=== PATIENT | male | born 1945 | race Caucasian/White ===

== ENCOUNTER 2023-01-17 18:39 | Emergency (ER) | payer MEDICARE, OTHER ==
[~2023-01-17] VITALS: Ht 190.5 cm; Wt 99.8 kg
[2023-01-17 22:30] VITALS: BP 120/74; PULSE 66; RESP 18; TEMP 97.6; O2SAT 96
== END 2023-01-17 22:30 | disposition home or self-care (01) ==
LOC: FSED 18:42
DX: S80.12XA Contusion of left lower leg, initial encounter (principal); I48.91 Unspecified atrial fibrillation; Z79.01 Long term (current) use of anticoagulants; I10 Essential (primary) hypertension; E78.00 Pure hypercholesterolemia, unspecified; E11.65 Type 2 diabetes mellitus with hyperglycemia; E78.5 Hyperlipidemia, unspecified; X58.XXXA Exposure to other specified factors, initial encounter; Y92.009 Unspecified place in unspecified non-institutional (private) residence as the place of occurrence of the external cause
CPT/HCPCS: 80053; 81003; 85025; 93971; 99283